=== PATIENT | male | born 1975 | race Caucasian/White ===

== ENCOUNTER 2018-05-18 05:44 | Day surgery (SDC) | payer BC ==
[2018-05-18] MEDS ORDERED: CIPRO 400 MG/200 ML D5W IVPB (07:00)
[2018-05-18] MEDS: LACTATED RINGER'S 1,000 ML IV (07:16)
[2018-05-18] MEDS ORDERED: PROPOFOL 20 ML (07:33)
[2018-05-18] MEDS ORDERED: GLYCOPYRROLATE 0.4 MG INJ (07:33)
[2018-05-18] MEDS ORDERED: SUCCINYLCHOLINE CHLORIDE 100 MG/5 ML SYG IV (07:33)
[2018-05-18] MEDS ORDERED: ROCURONIUM 50 MG INJ (07:33)
[2018-05-18] MEDS ORDERED: NEOSTIGMINE 3 MG/3 ML SYRINGE (07:34)
[2018-05-18] MEDS ORDERED: LIDOCAINE 2% (SDV) 5 ML INJ (07:34)
[2018-05-18] MEDS ORDERED: MEPERIDINE /PF (100 MG/2 ML) AMPULE (07:39)
[2018-05-18] MEDS ORDERED: ONDANSETRON 4 MG INJ (07:40)
[2018-05-18] MEDS ORDERED: CIPROFLOXACIN 400MG/D5W 0 ML (07:40)
[2018-05-18] MEDS: CIPROFLOXACIN 400MG/D5W 200 ML IVPB (07:44)
[2018-05-18] MEDS: IOHEXOL 300MG/ML 30 ML BTL (08:02)
[2018-05-18] MEDS ORDERED: FUROSEMIDE 20 MG INJ (08:11)
[2018-05-18] MEDS ORDERED: OXYCODONE/ACETAMINOPHEN (5/325) TAB PO ×2 (08:30)
[2018-05-18] MEDS ORDERED: METOCLOPRAMIDE 10 MG INJ IV (08:30)
[2018-05-18] MEDS ORDERED: hydrALAzine 20 MG INJ IV (08:30)
[2018-05-18] MEDS ORDERED: HYDROmorphONE 1 MG/5 ML IV SYRINGE IV ×3 (08:30)
[2018-05-18] MEDS ORDERED: FENTAnyl 50 MCG/ML VIAL IV ×2 (08:30)
[2018-05-18] MEDS ORDERED: LABETALOL HCL 20MG INJ IV (08:30)
[2018-05-18] MEDS ORDERED: MIDAZOLAM 1 MG/ML 2 ML INJ IV (08:30)
[2018-05-18] MEDS ORDERED: EPHEDrine SULFATE 50 MG/5 ML SYG IV (08:30)
[2018-05-18] MEDS ORDERED: DIPHENHYDRAMINE 50 MG INJ IV (08:30)
[2018-05-18] MEDS: FENTAnyl 50 MCG/ML VIAL IV (09:26)
[2018-05-18] MEDS: MEPERIDINE 25 MG INJ IV (09:26)
[2018-05-18] MEDS: ONDANSETRON 4 MG INJ IV (09:39)
== END 2018-05-18 10:40 | disposition home or self-care (01) ==
LOC: SDS 05:44
DX: N20.0 Calculus of kidney (principal)
CPT/HCPCS: 50590

== ENCOUNTER 2018-06-01 10:52 | Day surgery (SDC) | payer BC ==
[2018-06-01] MEDS: LACTATED RINGER'S 1,000 ML IV (11:59)
[2018-06-01] MEDS ORDERED: HYDROmorphONE 1 MG/5 ML IV SYRINGE IV ×3 (12:00)
[2018-06-01] MEDS ORDERED: ONDANSETRON 4 MG INJ IV (12:00)
[2018-06-01] MEDS ORDERED: OXYCODONE/ACETAMINOPHEN (5/325) TAB PO ×2 (12:00)
[2018-06-01] MEDS ORDERED: DIPHENHYDRAMINE 50 MG INJ IV (12:00)
[2018-06-01] MEDS ORDERED: CIPROFLOXACIN 400MG/D5W 200 ML IVPB (12:00)
[2018-06-01] MEDS ORDERED: METOCLOPRAMIDE 10 MG INJ (13:12)
[2018-06-01] MEDS ORDERED: MIDAZOLAM 1 MG/ML 2 ML INJ (13:12)
[2018-06-01] MEDS ORDERED: ONDANSETRON 4 MG INJ (13:12)
[2018-06-01] MEDS ORDERED: PROPOFOL 20 ML (13:12)
[2018-06-01] MEDS ORDERED: FENTAnyl 50 MCG/ML VIAL ×2 (13:13→14:32)
[2018-06-01] MEDS ORDERED: CIPROFLOXACIN 400MG/D5W 200 ML (13:14)
[2018-06-01] MEDS ORDERED: ACETAMINOPHEN 1000MG/100ML IV 100 ML (13:14)
[2018-06-01] MEDS ORDERED: SUCCINYLCHOLINE CHLORIDE 100 MG/5 ML SYG IV (13:45)
[2018-06-01] MEDS: MEPERIDINE 25 MG INJ IV (15:14)
== END 2018-06-01 17:49 | disposition home or self-care (01) ==
LOC: SDS 10:52
DX: N20.0 Calculus of kidney (principal)
CPT/HCPCS: 50590

== ENCOUNTER 2019-05-31 06:22 | Day surgery (SDC) | payer BC ==
[2019-05-31] MEDS: LACTATED RINGER'S 1,000 ML IV (07:59)
[2019-05-31] MEDS ORDERED: CEFAZOLIN 1 GM INJ (09:00)
[2019-05-31] MEDS ORDERED: IOHEXOL 300MG/ML 30 ML BTL (09:00)
[2019-05-31] MEDS ORDERED: ONDANSETRON 4 MG INJ (09:12)
[2019-05-31] MEDS ORDERED: PROPOFOL 20 ML (09:12)
[2019-05-31] MEDS ORDERED: METOCLOPRAMIDE 10 MG INJ (09:12)
[2019-05-31] MEDS ORDERED: SUCCINYLCHOLINE CHLORIDE 100 MG/5 ML SYG IV (09:12)
[2019-05-31] MEDS ORDERED: FENTAnyl 50 MCG/ML VIAL (09:13)
[2019-05-31] MEDS ORDERED: HYDROmorphONE 1 MG/5 ML IV SYRINGE IV (09:30)
[2019-05-31] MEDS ORDERED: ALBUTEROL 0.083% (NEB) 2.5 MG/3 ML AMP HHN (09:30)
[2019-05-31] MEDS ORDERED: FENTAnyl 50 MCG/ML VIAL IV ×3 (09:30)
[2019-05-31] MEDS ORDERED: hydrALAzine 20 MG INJ IV (09:30)
[2019-05-31] MEDS ORDERED: KETOROLAC 30 MG INJ IV (09:30)
[2019-05-31] MEDS ORDERED: DIPHENHYDRAMINE 50 MG INJ IV (09:30)
[2019-05-31] MEDS ORDERED: LABETALOL HCL 20MG INJ IV (09:30)
[2019-05-31] MEDS ORDERED: OXYCODONE/ACETAMINOPHEN (5/325) TAB PO ×2 (09:30)
[2019-05-31] MEDS: ONDANSETRON 4 MG INJ IV (10:27)
[2019-05-31] MEDS: MEPERIDINE 25 MG INJ IV (10:27)
[2019-05-31] MEDS: HYDROmorphONE 1 MG/5 ML IV SYRINGE IV ×2 (10:40→10:50)
== END 2019-05-31 11:52 | disposition home or self-care (01) ==
LOC: SDS 06:22
DX: N20.0 Calculus of kidney (principal)
CPT/HCPCS: 50590; 74430